=== PATIENT | male | born 1955 | race Caucasian/White ===

== ENCOUNTER → 2024-09-03 | Day surgery (SDC) | payer MEDICARE, MEDICAID ==
[~2024-09-03] VITALS: Ht 180.3 cm; Wt 72.6 kg
[~2024-09-03] MED LIST: ABIL10 PO; ACETYLCHOLINE CHLORIDE INTRAOCULAR SOLUTION 1:100 ELECTROLYTE DILUENT IO ONE; BALANCED SALT IRRIG SOLN COMB1 500ML OP SCH; DOCU-422 PO; FENTANYL CITRATE/PF 50MCG/ML 2ML VIAL ONE; GABA-1180 PO; GENTAMICIN 0.3% OPHTH DROPS 5ML ONE; HYALURONATE SODIUM 10MG/ML 0.55ML SYRINGE IO ONE; HYDR-4009 PO; HYDR50SO PO; LABETALOL 5MG/ML 4ML INJ IV PRN; LIDO-53 TP; MAG-4 PO; MELO-106 PO; MEPERIDINE HCL/PF 25MG/ML CPJ IV PRN; MIDAZOLAM HCL 2 MG/2 ML VIAL ONE; OMEP20TA23 PO; ONDANSETRON HCL 4MG/2ML INJ IV PRN; PHENYLEPHRINE 2.5% OPHTH 15 DROP/ML BOTTLE RIGHTEYE NR; PROPOFOL 200MG/20ML VIAL IV ONE; SERT100T PO; TOBRAMYCIN/DEXAMETHASONE OPTH DROPS 2.5ML ONE; TROPICAMIDE 1% OPHTH DROPS 15ML RIGHTEYE NR; TRYPAN BLUE 0.5 ML DISP.SYRIN IO ONE
[2024-09-03] MEDS: LACTATED RINGERS 1,000 ML IV SCH (09:14)
[2024-09-03] MEDS: HYDROMORPHONE HCL/PF 1MG/ML INJ IV PRN (10:53)
[2024-09-03 11:04] VITALS: BP 127/55; PULSE 55; RESP 14
== END | disposition home or self-care (01) ==
LOC: OR 07:43
PROVIDERS: ATTEND Ophthalmology
DX: H25.89 Other age-related cataract (principal); H21.501 Unspecified adhesions of iris, right eye; F41.9 Anxiety disorder, unspecified; F32.A Depression, unspecified; Z79.899 Other long term (current) drug therapy; Z98.890 Other specified postprocedural states
CPT/HCPCS: 93005; 67036; 66984; Q9957; J3010; J3490 ×3; J1580; J2003; J2250; J2704; J1171; V2630